=== PATIENT | male | born 1965 | race Caucasian/White ===

== ENCOUNTER 2022-01-24 14:57 | Emergency (ER) | payer MEDICAID, SELFPAY ==
[2022-01-24 15:02] VITALS: BP 114/80; PULSE 96; RESP 18; TEMP 37.2; O2SAT 99; BMI 28.2
--- NOTE | 2022-01-24 15:10 | CRLHL7_ITS ---
For Patients: As a result of the Century Cures Act, medical imaging exams and procedure reports are released immediately into your electronic medical record. You may view this report before your referring provider. If you have questions, please contact your health care provider. INDICATION: Leg pain and swelling. TECHNIQUE: Ultrasound venous duplex lower right extremity. Compression venous exam was performed using negro-scale, color Doppler, and spectral Doppler analysis. COMPARISON: None. FINDINGS: Deep veins: Sonographic imaging demonstrates the right common femoral, deep femoral, superficial femoral, popliteal, and the contralateral left common femoral veins to be fully compressible with normal color Doppler blood flow. Filling defect is identified within a posterior tibial vein on the right. There is also lack of compressibility. Superficial veins: Greater saphenous vein is fully compressible. No popliteal cyst. IMPRESSION: DVT in the right posterior tibial vein. Findings discussed with Dr. Dk Velasquez at 4:45 p.m. on 01/24/2022. Dictated by Gabo Boyd MD @ 01/24/2022 4:46:08 PM (Electronically Signed)
--- NOTE | 2022-01-24 15:11 | ED_ITS ---
HPI - General Adult General Chief complaint: Extremity Pain/Injury, Lower Stated complaint: Blood Clot Time Seen by Provider: 01/24/22 14:58 History of Present Illness HPI narrative: This 56-year-old male comes in with pain in his right calf. He does not report any injury event and does state that he has a history of deep venous thrombosis. He also reports that he has a valve that is regurgitating and needs to schedule a valve repair procedure of some sort. He does not report any chest pain or shortness of breath. He reports pain in his right lower calf in the lower half. Related Data Previous Rx's Medication Instructions Recorded apixaban 5 mg (74 tabs) tablets in See Rx Instructions PO .COMPLEX 01/24/22 a dose pack ([employer] DVT-PE Treat #74 ea 30D Start) Allergies Allergy/AdvReac Type Severity Reaction Status Date / Time No Known Drug Allergies Allergy Verified 01/24/22 15:04 Review of Systems Status of ROS: Reports: 10 or more systems reviewed and unremarkable except as noted in History and below Narrative: Constitutional: No fevers, no weight gain or loss. Eyes: No discharge. No vision changes. HENT: No congestion, no sore throat, no ear pain. Cardiovascular: No chest pain, no palpitations. Respiratory: No shortness of breath, no wheezes, no cough. Gastrointestinal: No abdominal pain, no vomiting, no diarrhea. Genitourinary: No dysuria, no hematuria. Musculoskeletal: Normal range of motion. Pain in the right lower calf. Skin: No rashes, no pruritis. Neurological: No dizziness, weakness, sensory change, speech change. Endo/Heme/Allergies: No bruising or bleeding. No polydipsia. Pysch: no suicidality, no anxiety, no insomnia. All other systems reviewed and are negative. Exam Narrative: Exam Narrative: Constitutional: Well-developed, well-nourished, no acute distress. HEENT: Normocephalic, atraumatic. Neck: Normal range of motion. Nontender. Supple. Heart: Regular. Systolic ejection murmur. Normal rate. Intact distal pulses. Lungs: Clear to auscultation. No chest discomfort. No wheezes, rhonchi, or rales. Abdomen: Normal bowel sounds. Nontender. No rebound tenderness. Genitalia: Deferred. Back: No midline tenderness. Normal range of motion. Extremities: Normal range of motion. No injury. 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 Skin: Intact. No rash. Warm. No erythema or pallor. Neurologic: No altered sensation. No weakness. Alert and oriented. Psychiatric: No suicidality. No anxiety or depression. No insomnia. Nursing notes and vitals signs are reviewed. Const: Vital Signs, click to edit/add: Vital Signs - 24 hr 01/24/22 15:02 Temperature 98.9 F Pulse Rate [Right Pulse Oximeter] 96 Respiratory Rate 18 Blood Pressure [Ri ght Upper Arm] 114/80 Pulse Oximetry 99 Oxygen Delivery Me thod Room Air Course Vital Signs Vital signs: Initial Vital Signs Temperature 98.9 F 01/24/22 15:02 Temperature Source Temporal Artery Scan 01/24/22 15:02 Pulse Rate 96 01/24/22 15:02 Pulse Rhythm 01/24/22 15:02 Respiratory Rate 18 01/24/22 15:02 Blood Pressure 114/80 01/24/22 15:02 Blood Pressure Mean 91 01/24/22 15:02 Blood Pressure Position Sitting 01/24/22 15:02 Pulse Oximetry 99 01/24/22 15:02 Oxygen Delivery Method 01/24/22 15:02 Vital Signs Temperature 98.9 F 01/24/22 15:02 Pulse Rate 96 01/24/22 15:02 Respiratory Rate 18 01/24/22 15:02 Blood Pressure 114/80 01/24/22 15:02 Pulse Oximetry 99 01/24/22 15:02 Oxygen Delivery Method 01/24/22 15:02 Temperature 98.9 F 01/24/22 15:02 Pulse Rate 96 01/24/22 15:02 Respiratory Rate 18 01/24/22 15:02 Blood Pressure 114/80 01/24/22 15:02 Pulse Oximetry 99 01/24/22 15:02 Oxygen Delivery Method 01/24/22 15:02 Medical Decision Making MDM Narrative Medical decision making narrative: This patient comes in reporting pain in his right calf and states that he has a prior history of deep venous thrombosis. He is not on any anticoagulants. Ultrasound imaging of the right lower extremity does show evidence of clot. He does not have any shortness of breath or chest pain. His pulse and respiratory rate and oximetry are all in normal range. I discussed CT imaging of the chest but indicated reassurance with his vital signs. His age is greater than 50 any does have prior history of DVT. Patient agrees to have treatment with Eliquis for anticoagulation. I advised him to follow-up with his primary physician or return if worsening. Discharge Plan Discharge Clinical Impression: DVT (deep venous thrombosis) Patient Disposition: Home, Self-Care Condition: Stable Additional Instructions: Take medication as prescribed. Follow up with primary physician for further evaluation and treatment. Return if worsening. Prescriptions: New Eliquis DVT-PE Treat 30D Start 5 mg (74 tabs) tablets,dose pack See Rx Instructions .ROUTE .COMPLEX Qty: 74 0RF Rx Instructions: orally per package directions Follow Up/Referrals: Provider,Not a Local [Primary Care Provider] - Stand Alone Forms: [facility] Info Instructions
== END 2022-01-24 17:03 | disposition home or self-care (01) ==
PROVIDERS: Emergency Provider Emergency Medicine Emergency Medical Services
DX: I82.461 Acute embolism and thrombosis of right calf muscular vein (principal)
CPT/HCPCS: 93971; 99283; 99285

== ENCOUNTER 2022-06-19 15:14 | Emergency (ER) | payer MEDICAID, SELFPAY ==
[2022-06-19 15:17] VITALS: BP 144/89; PULSE 85; RESP 18; TEMP 37; O2SAT 97; BMI 29.1
[2022-06-19 15:33] LABS: Appearance Urine Clear (Clear); Bilirubin Urine Negative (Negative); Blood Urine Negative (Negative); Color Urine Yellow (Yellow); Glucose Urine Negative (Negative); Ketones Urine Negative (Negative); Leukocyte Esterase Urine Negative (Negative); Nitrite Urine Negative (Negative); Protein Urine Negative (Negative); Specific Gravity Urine >= 1.030 (1.000-1.030); Urobilinogen Urine 0.2 (0.2-1.0); pH Urine 5.5 (5.0-8.5)
[2022-06-19 15:45] LABS: RBC Urine 0-2 (0-2); Squamous Epithelial Cell Urine Few (None-Few); WBC Urine 0-2 (0-5)
--- NOTE | 2022-06-19 16:21 | CRLHL7_ITS ---
For Patients: As a result of the Century Cures Act, medical imaging exams and procedure reports are released immediately into your electronic medical record. You may view this report before your referring provider. If you have questions, please contact your health care provider. INDICATION: Left flank pain TECHNIQUE: Axial images were obtained from the diaphragm to the pubic symphysis. Reformats were obtained in the coronal and sagittal plane. IV Contrast: None Oral Contrast: None COMPARISON: None. FINDINGS: Lower chest: Mild basilar discoid atelectasis. Liver: Unremarkable. Normal in size and attenuation. No masses. Gallbladder and bile ducts: Unremarkable. No stones or inflammation. No biliary dilatation. Spleen: Unremarkable. Normal in size without mass. Pancreas: Unremarkable. No mass or inflammation. Adrenal glands: Unremarkable. No nodules. Kidneys: Kidneys are normal in contour without hydronephrosis or nephrolithiasis. Vasculature: Unremarkable. GI tract: The stomach is unremarkable. Appendix unremarkable. No dilated loops of large or small intestine. Pelvis: Unremarkable. Bones: Ossification of the posterior aspect of the left acetabulum. Other: Left anterior chest wall intramuscular lipoma measuring 3.9 centimeters (series 2, image 15). IMPRESSION: 1. No evidence of nephrolithiasis or hydronephrosis. 2. No dilated bowel or localized inflammation. 3. No clear acute findings to explain the patient`s pain. Please note that all CT scans at this facility use dose modulation, iterative reconstruction, and/or weight-based dosing when appropriate to reduce radiation dose to as low as reasonably achievable. Dictated by Kishor Sims MD @ 06/19/2022 5:37:07 PM (Electronically Signed)
--- NOTE | 2022-06-19 16:22 | ED_ITS ---
HPI - General Adult General Chief complaint: Flank Pain Stated complaint: Back pain in kidney area Time Seen by Provider: 06/19/22 15:52 History of Present Illness HPI narrative: This 57-year-old male comes in reporting pain in his left flank region that began yesterday after waking up. He does not report any injury event or strenuous activity. He states that the pain is minimal when remaining still and distinctly worse when moving or changing position. He does not report any symp toms of dysuria and does not have a history of kidney stone. He does have a recent history of DVT and pulmonary embolism and is currently on Eliquis. He denies having any chest pain or shortness of breath. He arrives with normal vital signs. Related Data Home Medications Medication Instructions Recorded Confirmed simvastatin 20 mg tablet 20 mg PO QPM 06/19/22 06/19/22 Previous Rx's Medication Instructions Recorded apixaban 5 mg (74 tabs) tablets in See Rx Instructions PO .COMPLEX 01/24/22 a dose pack (Eliquis DVT-PE Treat #74 ea 30D Start) Allergies Allergy/AdvReac Type Severity Reaction Status Date / Time No Known Drug Allergies Allergy Verified 06/19/22 15:22 Review of Systems Status of ROS: Reports: 10 or more systems reviewed and unremarkable except as noted in History and below Narrative: Constitutional: No fevers, no weight gain or loss. Eyes: No discharge. No vision changes. HENT: No congestion, no sore throat, no ear pain. Cardiovascular: No chest pain, no palpitations. Respiratory: No shortness of breath, no wheezes, no cough. Gastrointestinal: No abdominal pain, no vomiting, no diarrhea. Genitourinary: No dysuria, no hematuria. Musculoskeletal: Normal range of motion. Pain in the left flank that is worse with movement. Skin: No rashes, no pruritis. Neurological: No dizziness, weakness, sensory change, speech change. Endo/Heme/Allergies: No bruising or bleeding. No polydipsia. Pysch: no suicidality, no anxiety, no insomnia. All other systems reviewed and are negative. PFSH PFS Social History Smoking Status: Heavy tobacco smoker What tobacco products do you use: cigare ttes Second hand tobacco smoke exposure: No How often do you have a drink containing alcohol: never AUDIT-C Alcohol total score: 0 Non-prescribed substance use: declined to answer Exam Narrative: Exam Narrative: Constitutional: Well-developed, well-nourished, no acute distress. HEENT: Normocephalic, atraumatic. Neck: Normal range of motion. Nontender. Supple. Heart: Regular. No murmurs. Normal rate. Intact distal pulses. Lungs: Clear to auscultation. No chest discomfort. No wheezes, rhonchi, or rales. Abdomen: Normal bowel sounds. Nontender. No rebound tenderness. Genitalia: Deferred. Back: No midline tenderness. Normal range of motion. Diffuse tenderness in the left lateral lower and mid back region. No sign of injury. Pain is minimal when remaining still and worse with certain movements. Extremities: Normal range of motion. No injury. Skin: Intact. No rash. Warm. No erythema or pallor. Neurologic: No altered sensation. No weakness. Alert and oriented. Psychiatric: No suicidality. No anxiety or depression. No insomnia. Nursing notes and vitals signs are reviewed. Const: Vital Signs, click to edit/add: Vital Signs - 24 hr 06/19/22 15:17 Temperature 98.6 F Pulse Rate [Right Pulse Oximeter] 85 Respiratory Rate 18 Blood Pressure [Ri ght Upper Arm] 144/89 H Pulse Oximetry 97 Oxygen Delivery Me thod Room Air Course Vital Signs Vital signs: Initial Vital Signs Temperature 98.6 F 06/19/22 15:17 Temperature Source Temporal Artery Scan 06/19/22 15:17 Pulse Rate 85 06/19/22 15:17 Respiratory Rate 18 06/19/22 15:17 Blood Pressure 144/89 H 06/19/22 15:17 Blood Pressure Mean 107 06/19/22 15:17 Blood Pressure Position Sitting 06/19/22 15:17 Pulse Oximetry 97 06/19/22 15:17 Oxygen Delivery Method Room Air 06/19/22 15:17 Vital Signs Temperature 98.6 F 06/19/22 15:17 Pulse Rate 85 06/19/22 15:17 Respiratory Rate 18 06/19/22 15:17 Blood Pressure 144/89 H 06/19/22 15:17 Pulse Oximetry 97 06/19/22 15:17 Oxygen Delivery Method Room Air 06/19/22 15:17 Temperature 98.6 F 06/19/22 15:17 Pulse Rate 85 06/19/22 15:17 Respiratory Rate 18 06/19/22 15:17 Blood Pressure 144/89 H 06/19/22 15:17 Pulse Oximetry 97 06/19/22 15:17 Oxygen Delivery Method Room Air 06/19/22 15:17 Medical Decision Making MDM Narrative Medical decision making narrative: This patient comes in reporting pain in his left flank region that began yesterday upon awakening. He does not report any specific injury event or strenuous activity but does state that if he remains still the pain is minimal. If he moves in certain ways the pain is worsened. This is suggesting a musculoskeletal cause for his pain. His urinalysis is shows normal results. He states that the pain seemed more internal so I did do a CT scan of the abdomen and pelvis. By my review there are no signs of abnormalities. The patient is interested in leaving and did not want a wait for radiology report. He is okay to be discharged home. I indicated that we could contact him if there is any discrepancy or significant finding on the CT imaging. I advised using Tylenol as needed and directed for pain. Lab Data Labs: Lab Results 06/19/22 Range/Units 15:29 Urine Color Yellow (Yellow) Urine Appearance Clear (Clear) Urine pH 5.5 (5.0-8.5) Ur Specific Liberal >= 1.030 (1.000-1.030) Urine Protein Negative (Negative) Urine Glucose (UA) Negative (Negative) Urine Ketones Negative (Negative) Urine Blood Negative (Negative) Urine Nitrite Negative (Negative) Urine Bilirubin Negative (Negative) Urine Urobilinogen 0.2 (0.2-1.0) Ur Leukocyte Esterase Negative (Negative) Urine RBC 0-2 (0-2) Urine WBC 0-2 (0-5) Ur Squamous Epith Cells Few (None-Few) Urine Bacteria None (None) Discharge Plan Discharge Clinical Impression: Acute left flank pain Patient Disposition: Home, Self-Care Condition: Unchanged Additional Instructions: Use Tylenol as needed and directed for pain. Continue current plans otherwise. Follow up with MD or return if worsening. Prescriptions: No Action simvastatin 20 mg tablet 20 mg PO QPM Eliquis DVT-PE Treat 30D Start 5 mg (74 tabs) tablets,dose pack See Rx Instructions .ROUTE .COMPLEX Qty: 74 0RF Rx Instructions: orally per package directions Follow Up/Referrals: Provider,Not a Local [Referring] - Stand Alone Forms: [facility] Info Instructions
--- NOTE | 2022-06-19 17:36 | ED.NURSE ---
pt standing in [place] wants to leave. ct results not back yet. dr. dumont wrote dc instructions.
== END 2022-06-19 17:37 | disposition home or self-care (01) ==
PROVIDERS: Emergency Provider Emergency Medicine Emergency Medical Services; PCP Student in an Organized Health Care Education/Training Program
DX: R10.9 Unspecified abdominal pain (principal)
CPT/HCPCS: 74176; 81001; 99283; 99284

== ENCOUNTER 2022-11-05 15:38 | Emergency (ER) | payer MEDICAID, SELFPAY ==
[2022-11-05 15:57] VITALS: BP 122/79; PULSE 84; RESP 20; TEMP 36.1; O2SAT 97; BMI 28.2
--- NOTE | 2022-11-05 16:00 | CRLHL7_ITS ---
For Patients: As a result of the Century Cures Act, medical imaging exams and procedure reports are released immediately into your electronic medical record. You may view this report before your referring provider. If you have questions, please contact your health care provider. INDICATION: PAIN, SWELLING, HX OF DVT COMPARISON: 01/24/2022 TECHNIQUE: A compression venous ultrasound exam was performed of the right lower extremity using negro-scale imaging, color Doppler and spectral Doppler analysis. FINDINGS: Sonographic imaging of the right lower extremity demonstrates normal compressibility and color Doppler venous blood flow within the common femoral vein, deep femoral vein, and the proximal greater saphenous vein. Within the thigh, the femoral vein is patent and compressible. At a lower level, the popliteal and posterior tibial veins also show normal compressibility and color Doppler venous blood flow. Limited imaging of the contralateral groin demonstrates a normal spectral waveform and color Doppler venous blood flow within the left common femoral vein. IMPRESSION: Normal venous ultrasound exam. No evidence of deep vein thrombosis within the right lower extremity. Dictated by Ruel Estes MD @ 11/05/2022 5:35:05 PM (Electronically Signed)
--- NOTE | 2022-11-05 17:06 | ED_ITS ---
HPI - General Adult General Time Seen by Provider: 17:06 Date Seen: 11/05/22 Chief complaint: Extremity Pain/Injury, Lower Stated complaint: Possible blood clot R leg Time Seen by Provider: 11/05/22 16:43 Source: patient, RN notes reviewed and old records reviewed Mode of arrival: ambulatory Limitations: no limitations History of Present Illness HPI narrative: Luis E is a very pleasant 57-year-old gentleman with a history of DVT and PE who comes to the emergency room with concerns regarding right lower leg pain. Patient states that he had a DVT and PE earlier this year and had to be hospitalized at [facility]. He was on and starter pack of Eliquis and then started on routine dosing of Eliquis. Unfortunately he ran out of that medication approximately 2 weeks ago and was without the medicine for a week and a half. He notes that he has now been back on the Eliquis because he found some doses left over in the starter pack. He only has a few more days left. Last evening he noted increasing discomfort in his right lower extremity. He shows this to be the area of the anterior lateral lower leg. He has not noticed any calf pain. He has not had any fever or chills or drainage from the multiple wounds that her on his lower extremities. He denies a history of diabetes. He works in a [employer] y[employer] and therefore has a lot of injuries to his legs. Denies any recent infection. Patient states that occasionally the pain will radiate into his right knee and into his right hip. He has no lower back pain number numbness or tingling. He is still able to walk and bear weight. He cannot think of any specific trauma. Patient notes that he quit smoking in March. He denies shortness of breath but states he did not have shortness of breath when he had his PE earlier this year. Related Data Home Medications Medication Instructions Recorded Confirmed simvastatin 20 mg tablet 20 mg PO QPM 06/19/22 06/19/22 Previous Rx's Medication Instructions Recorded apixaban 5 mg (74 tabs) tablets in See Rx Instructions PO .COMPLEX 01/24/22 a dose pack (Eliquis DVT-PE Treat #74 ea 30D Start) apixaban 5 mg tablet (Eliquis) 5 mg PO BID #60 tabs 11/05/22 Allergies Allergy/AdvReac Type Severity Reaction Status Date / Time No Known Drug Allergies Allergy Verified 06/19/22 15:22 Review of Systems Status of ROS: Reports: 10 or more systems reviewed and unremarkable except as noted in History and below Const: Denies: fever, chills or fatigue Eyes: Denies: change in vision ENMT: Denies: difficulty swallowing Cardio: Denies: chest pain, palpitations, swelling of feet/ankles, lightheadedness or shortness of breath with exertion Resp: Denies: shortness of breath or cough GI: Denies: abdominal pain, nausea or difficulty swallowing Musculo: Reports: extremity pain (Right lower extremity); Denies: back pain or extremity swelling Integ/Breast: Reports: sores; Denies: redness Neuro: Denies: numbness in extremities or weakness in extremities Endo: Denies: fatigue PFSH PFSH Social History Smoking Status: Heavy tobacco smoker What tobacco products do you use: cigarettes Second hand tobacco smoke exposure: No How often do you have a drink containing alcohol: never AUDIT-C Alcohol total score: 0 Non-prescribed substance use: declined to answer Exam Narrative: Exam Narrative: Patient is noted to be alert and oriented. No acute distress. Neck is supple. Heart with regular rate and rhythm and lungs are clear in all lung mendez. Patient does smell strongly tobacco. No pain in the lower back with palpation. Examination of the lower extremity shows multiple superficial scratches and abrasions. None with any evidence of surrounding erythema drainage were warrants to the touch. Patient is able to move his lower extremities without difficulty. He has no pain with palpation over the Achilles tendon or the gastrocnemius. Const: Vital Signs, click to edit/add: Vital Signs - 24 hr 11/05/22 15:57 Temperature 96.9 F L Pulse Rate [Pulse Oximeter] 84 Respiratory Rate 20 Blood Pressure [Ri ght Upper Arm] 122/79 Pulse Oximetry 97 Oxygen Delivery Me thod Room Air Documenting provider has reviewed patient's vital signs: yes Course Course Hospital Course: At this time patient has already had a ultrasound of the lower extremity. There is residual clot but no new clot noted. Vital Signs Vital signs: Initial Vital Signs Temperature 96.9 F L 11/05/22 15:57 Temperature Source Temporal Artery Scan 11/05/22 15:57 Pulse Rate 84 11/05/22 15:57 Pulse Rhythm Regular 11/05/22 15:57 Respiratory Rate 20 11/05/22 15:57 Blood Pressure 122/79 11/05/22 15:57 Blood Pressure Mean 93 11/05/22 15:57 Blood Pressure Position Sitting 11/05/22 15:57 Pulse Oximetry 97 11/05/22 15:57 Oxygen Delivery Method Room Air 11/05/22 15:57 Vital Signs Temperature 96.9 F L 11/05/22 15:57 Pulse Rate 84 11/05/22 15:57 Respiratory Rate 20 11/05/22 15:57 Blood Pressure 122/79 11/05/22 15:57 Pulse Oximetry 97 11/05/22 15:57 Oxygen Delivery Method Room Air 11/05/22 15:57 Temperature 96.9 F L 11/05/22 15:57 Pulse Rate 84 11/05/22 15:57 Respiratory Rate 20 11/05/22 15:57 Blood Pressure 122/79 11/05/22 15:57 Pulse Oximetry 97 11/05/22 15:57 Oxygen Delivery Method Room Air 11/05/22 15:57 Medical Decision Making MDM Narrative Medical decision making narrative: 1. Right lower leg pain-no evidence of new or occlusive clot. Patient has been back on his Eliquis over the past 3-4 days after having been off of it for a week and a half. I stressed the importance of continuing this medication. I have sent one-month supply of Eliquis 5 mg p.o. b.i.d. to his pharmacy. I do ask however that he follow-up with a primary MD at the [facility] where he usually goes as I would not be able to provide him future refills. I did explain that there is residual clot in his leg (per read tech) but that he is already on what I would order for treatment. Today he has no evidence of tachycardia or hypoxia. I do not think that his leg pain is from residual DVT. Alternatively I do not think this is cellulitis as he does not have a fever or r edness of the leg. Perhaps with some eye discomfort in the knee and hip we could be dealing with a radicular problem but there is no weakness in the lower extremity and sensation is intact. At this time recommend Tylenol as needed for discomfort. 2. Disposition-home at this time. Return for worsening symptoms and as needed. Medical Records Medical records reviewed: Yes I reviewed the patient's medical records Imaging Data Venous US: Attestation: I have reviewed the pertinent imaging results. Radiologist's impression: Sonographic imaging of the right lower extremity demonstrates normal compressibility and color Doppler venous blood flow within the common femoral vein, deep femoral vein, and the proximal greater saphenous vein. Within the thigh, the femoral vein is patent and compressible. At a lower level, the popliteal and posterior tibial veins also show normal compressibility and color Doppler venous blood flow. Limited imaging of the contralateral groin demonstrates a normal spectral waveform and color Doppler venous blood flow within the left common femoral vein. IMPRESSION: Normal venous ultrasound exam. No evidence of deep vein thrombosis within the right lower extremity. Discharge Plan Discharge Clinical Impression: Left leg pain Patient Disposition: Home, Self-Care Condition: Unchanged Additional Instructions: Today you do not have any evidence of a new clot in your leg. Your oxygen levels are good. Please continue your current dosing of Eliquis. One-month supply was sent in to your pharmacy. Please follow-up with the [facility] for a recheck in the next 2-3 weeks. Monitor your leg and if you have worsening symptoms return to the emergency room. Monitor for increasing redness, evidence of infection. Prescriptions: New Eliquis 5 mg tablet 5 mg PO BID Qty: 60 2RF No Action simvastatin 20 mg tablet 20 mg PO QPM Eliquis DVT-PE Treat 30D Start 5 mg (74 tabs) tablets,dose pack See Rx Instructions .ROUTE .COMPLEX Qty: 74 0RF Rx Instructions: orally per package directions Follow Up/Referrals: RHINA WOO DO [Primary Care Provider] - Stand Alone Forms: [employer] Info Instructions
== END 2022-11-05 17:35 | disposition home or self-care (01) ==
LOC: ED 17:26
PROVIDERS: Emergency Provider Family Medicine; PCP Student in an Organized Health Care Education/Training Program
DX: M79.605 Pain in left leg (principal)
CPT/HCPCS: 93971; 99283; 99284

== ENCOUNTER 2022-12-07 01:35 | Emergency (ER) | payer MEDICAID, SELFPAY ==
[2022-12-07 02:04] VITALS: BP 132/74; PULSE 79; RESP 18; TEMP 36.6; O2SAT 99; BMI 24.3
--- NOTE | 2022-12-07 02:38 | CRLHL7_ITS ---
For Patients: As a result of the Cures Act, medical imaging exams and procedure reports are released immediately into your electronic medical record. You may view this report before your referring provider. If you have questions, please contact your health care provider. INDICATION: Cough chest tightness cold, cough, shortness of breath, bilateral wheezing and rales TECHNIQUE: Chest radiograph 2 views COMPARISON: None FINDINGS: Mediastinum: The mediastinum is normal in appearance. Mild cardiomegaly is noted. Lung: There is an 8 mm low-density nodule in the left upper lung zone and a 6 mm nodule in the right upper lung zone. No sign of pleural effusion seen. No pneumothorax is identified. Bone and Soft tissue: Unremarkable for age. IMPRESSIONS: 1. There is an 8 mm low-density nodule in the left upper lung zone and a 6 mm nodule in the right upper lung zone. Comparison with any prior outside imaging is recommended. If these cannot be obtained, follow up chest radiograph in 3 months is warranted to document stability. 2. Mild cardiomegaly is noted. Dictated by Ricky Vincent MD @ 12/07/2022 3:25:38 AM Dictated by: Ricky Vincent MD @ 12/07/2022 03:25:43 (Electronically Signed)
--- NOTE | 2022-12-07 02:39 | ED_ITS ---
HPI - General Adult General Date Seen: 12/07/22 Chief complaint: Cough Stated complaint: difficulty breathing, has cold Time Seen by Provider: 12/07/22 01:43 History of Present Illness HPI narrative: This is a pleasant 57-year-old male who presents to the ER today with his family for evaluation of cough, shortness of breath, chest congestion. He has a fairly complex past history including a history of DVT/PE diagnosed about 8 months ago, currently on Eliquis. 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 He apparently follows with [facility] for that and will be having surgery for it sometime in the not too distant future. It sounds like his surgery has been delayed due to other medical problems. He does not have a formal diagnosis of asthma or COPD but has been given inhalers in the past. He is a former smoker but quit smoking cigarettes last February, 9 months ago. His friends have been ill lately with a cough and chest congestion. He thinks he caught a cold from them. He does not know if they have been diagnosed with any specific illness, such as COVID. He has been sick for 3-5 days with coughing, chest congestion. He has been short of breath. He does have some chronic dyspnea on exertion (that he relates to his heart valve) that is been worse than normal for the past few days while he has been sick. He feels like his chest congestion is starting to get better, but his shortness of breath is not. He is not really worst tonight that he has been for the past few days, but he came to the ER because he is getting better. He is not running a fever. No nasal congestion. No sore throat. No earache. No vomiting or diarrhea. No swelling in his legs. He had a period last month in October where he had been off his Eliquis for a couple of weeks because he ran out. He did get a refill and he has been taking it since then. He says sometimes he forgets to take both doses in a day but he is generally pretty consistent in taking it. Related Data Home Medications Medication Instructions Recorded Confirmed simvastatin 20 mg tablet 20 mg PO QPM 06/19/22 12/07/22 Previous Rx's Medication Instructions Recorded apixaban 5 mg tablet (Eliquis) 5 mg PO BID #60 tabs 11/05/22 doxycycline monohydrate 100 mg 100 mg PO BID 7 days #14 caps 12/07/22 capsule Allergies Allergy/AdvReac Type Severity Reaction Status Date / Time No Known Drug Allergies Allergy Verified 12/07/22 02:05 [facility] Social History Smoking Status: Current every day smoker What tobacco products do you use: cigarettes Do you use any of these nicotine containing products: None Second hand tobacco smoke exposure: Yes How often do you have a drink containing alcohol: never How often do you have six or more drinks on one occasion: Never AUDIT-C Alcohol total score: 0 Non-prescribed substance use: denies use service: No Exam Narrative: Exam Narrative: Constitutional: Appears well-developed and well-nourished. Alert. Conversant. Non toxic. He says he is a nonsmoker but there is an aroma of smoke in the room. Possibly from his sample collector. HENT: Head: Atraumatic. Nose: Nose normal. Mouth/Throat: Oral mucosa is clear and moist. no trismus. Pharynx normal. Tonsils symmetric. No tonsillar enlargement, erythema, or exudate. Eyes: Conjunctivae normal. EOM normal. Pupils equal, round, and reactive to light. No scleral icterus. Neck: Normal range of motion. Neck supple. No tracheal deviation present. Cardiovascular: Normal rate, regular rhythm. No gallop. No friction rub. Systolic murmur heard. Symmetric radial artery pulses . No JVD. Pulmonary/Chest: Effort normal. No stridor. No respiratory distress. Bilateral coarse rales and rhonchi with wheezes. No tenderness. Abdominal: Soft. Bowel sounds normal. No distension. No mass. No tenderness. No rebound. No guarding. Musculoskeletal: RUE: Normal range of motion. No tenderness. No deformity LUE: Normal range of motion. No tenderness. No deformity RLE: Normal range of motion. No edema. No tenderness. No deformity LLE: Normal range of motion. No edema. No tenderness. No deformity Lymph: No cervical adenopathy. Neurological: Alert and oriented to person, place, and time. Normal strength. CN II-VII intact. No sensory deficit. GCS eye subscore is 4. GCS verbal subscore is 5. GCS motor subscore is 6. Normal coordination Skin: Skin is warm and dry. No rash noted. No pallor. Normal capillary refill. Psychiatric: Normal mood. Normal affect. Const: Vital Signs, click to edit/add: Vital Signs - 24 hr 12/07/22 02:04 Temperature 97.8 F Pulse Rate [Right Pulse Oximeter] 79 Respiratory Rate 18 Blood Pressure [Ri ght Upper Arm] 132/74 Pulse Oximetry 99 Oxygen Delivery Me thod Room Air Course Reevaluation(s) Reevaluation #1: Recheck-after DuoNeb patient says he does not feel much better. Repeat lung exam still reveals expiratory rales and wheezes. Perhaps similar to prior, no definite change. Oxygen still 97% room air. Respirations unlabored while resting in bed Reevaluation #2: Recheck-after completing albuterol neb patient feels unchanged. Lung sounds still predominantly reveal expiratory rales and rhonchi. Less wheezing. Work of breathing while at rest is still fine. Oxygen still normal on room air. I ambulated the patient in the ER myself. We were able to walk briskly. We did about 5 laps around the nursing station. He began did develop tachypnea. Weeks went back to his room. Oxygen sat was 95% initially in the came up to 97 within a minute of resting. Work of breathing was fairly rapid. Will obtain further workup to look for cardiac causes of dyspnea or PE since chest x-ray is negative for pneumonia, COVID is negative. Wheezing is resolved after nebs but he still short of breath and has expiratory rales and rhonchi on his lung exam. Vital Signs Vital signs: Initial Vital Signs Respiratory Effort Normal, Spontaneous, Short of Breath 12/07/22 02:00 Respiratory Depth Normal 12/07/22 02:00 Respiratory Pattern Normal 12/07/22 02:00 Vital Signs Temperature 97.8 F 12/07/22 02:04 Pulse Rate 79 12/07/22 02:04 Respiratory Rate 18 12/07/22 02:04 Blood Pressure 132/74 12/07/22 02:04 Pulse Oximetry 99 12/07/22 02:04 Oxygen Delivery Method Room Air 12/07/22 02:04 Temperature 97.8 F 12/07/22 02:04 Pulse Rate 79 12/07/22 02:04 Respiratory Rate 18 12/07/22 02:04 Blood Pressure 132/74 12/07/22 02:04 Pulse Oximetry 99 12/07/22 02:04 Oxygen Delivery Method Room Air 12/07/22 02:04 Medical Decision Making MDM Narrative Medical decision making narrative: 57-year-old male with a history of DVT/PE (currently on Eliquis, with recent break in therapy because he ran out of meds last month). He also has a history of cardiac disease with a heart fell problem. He presents to the ER tonight with chest congestion, cough, shortness of breath. He did catch ?a cold? from his friends and has been symptomatic with that for about 3 or 4 days. COVID/influenza/RSV PCR is negative. Chest x-ray is negative for any obvious focal infiltrate to suggest community-acquired pneumonia. Incidentally chest x-ray does show pulmonary nodules. Discussed with the patient and his family. Follow-up chest x-ray within 1-3 months recommended they verbalized their understanding. He was initially having expiratory wheezes and rales/rhonchi in his lung exam. We administered steroids and 2 bronchodilator nebs. Wheezes did seem to improve but the rales and rhonchi have not changed. Overall he symptomatically does not feel any better after those interventions. He has not been hypoxic here in the ER. With ambulation he became significantly tachypneic but did not develop hypoxia. No altered mental status or signs of hypercarbia. Differential would also include cardiac causes of dyspnea such as CHF, ACS. Since initial diagnostic workup is negative and he is not responding to initial treatments, we will obtain EKG, troponin. Will obtain chest CT to look for recurrent PEs since he has recently been off Eliquis. Fortunately CT scan is negative for PE. CT scan does show infiltrates affecting both lungs but predominantly the left lower lobe which is favored to represent an infection such as pneumonia. Laboratory workup shows normal troponin, normal BNP. He does not have any peripheral edema. At this point CHF seems unlikely. With ground-glass infiltrates consider possible COVID but COVID PCR is negative today. We will treat with doxycycline for possible community-acquired bacterial pneumonia for now. Discussed return precautions. At this point patient is maintaining normal oxygen saturations on room air, has normal mental status (he is playing a game on his smart phone while waiting in the ER) and is safe for outpatient management. Clinical impression 1. Community-acquired pneumonia (left lower lobe> right) 2. Pulmonary nodules Lab Data Labs: Lab Results 12/07/22 12/07/22 Range/Units 02:40 04:15 WBC 10.69 (4.50-11.00) K/uL RBC 5.13 (4.30-5.90) m/uL Hgb 15.6 (13.5-17.5) gm/dL Hct 47.1 (37.0-53.0) % MCV 92 (80-100) fL MCH 30 (26-34) pg MCHC 33 (32-36) gm/dL RDW Coeff of [place] 13.4 (11.5-15.5) % Plt Count 319 (140-440) K/uL Neut % (Auto) 66.4 (42.0-72.0) % Lymph % (Auto) 23.2 (20-44) % [place] % (Auto) 9.5 (0.0-11.0) % Eos % (Auto) 0.6 (0.0-7.0) % Baso % (Auto) 0.2 (0.0-3.0) % Neut # (Auto) 7.10 H (1.7-7.0) K/uL Lymph # (Auto) 2.48 (0.90-2.90) K/uL [place] # (Auto) 1.00 H (0.00-0.90) K/UL Eos # (Auto) 0.06 (0.00-0.50) K/uL Baso # (Auto) 0.02 (0.00-0.30) K/uL Abs Immat Gran (auto) 0.01 (0.00-0.30) K/uL Imm/Tot Granulo (auto) 0.1 % Sodium 139 (135-149) mmol/L Potassium 3.4 L (3.6-5.1) mmol/L Chloride 103 (96-114) mmol/L Carbon Dioxide 27 (20-32) mmol/L Anion Gap 9 (7-15) mEq/L BUN 22 (7-30) mg/dL Creatinine 1.1 (0.5-1.5) mg/dL Estimated Creat Clear 71.68 Estimated GFR 78 ml/min Glucose 120 H (60-115) mg/dL Calcium 9.2 (8.4-10.6) mg/dL Troponin I 0.01 (0.01-0.04) ng/mL NT-Pro-B Natriuret Pep 159 pg/mL SARS-CoV-2 (PCR) Negative SARS-CoV-2 (Negative) Influenza Type A (PCR) Negative PCR FLU A (Negative) Influenza Type B (PCR) Negative PCR FLU B (Negative) RSV (PCR) Negative PCR RSV (Negative) Imaging Data Chest x-ray: My impression: No acute infiltrates or pulmonary edema. Radiologist's impression: IMPRESSIONS: 1. There is an 8 mm low-density nodule in the left upper lung zone and a 6 mm nodule in the right upper lung zone. Comparison with any prior outside imaging is recommended. If these cannot be obtained, follow up chest radiograph in 3 months is warranted to document stability. 2. Mild cardiomegaly is noted. CT scan - chest: Attestation: I have reviewed the pertinent imaging results. Radiologist's impression: IMPRESSION: 1. No pulmonary embolism. 2. Nonspecific pneumonitis or edema in both lungs, predominantly in the left lower lobe. An acute infectious or inflammatory process is suspected. ECG Data Attestation: I personally reviewed and interpreted this ECG as follows: Interpretation: Normal sinus rhythm with premature atrial complexes. Rate 91. IL 130 QRS axis:No pathologic Q-waves. Right bundle branch block. ST segment/T wave: No ST segment elevation or depression. QTc: 492 Discharge Plan Discharge Clinical Impression: Incidental pulmonary nodule, Pneumonia Patient Disposition: Home, Self-Care Condition: Stable Instructions: Pulmonary Nodules (ED) Additional Instructions: Please follow-up with your regular doctor (or your solar thermal technician) to have them get another chest x-ray within 1-3 months to monitor the nodules that the radiologist sees on your chest x-ray tonight. Your CT scan does show that you have pneumonia, primarily affecting your left lower lung. He need to start on the antibiotics to treat your pneumonia. It will probably take 1-2 days before your pneumonia starts to get better. However, if you get worse you should come back to the ER right away-such as if you develop worsening trouble breathing, fever, weakness, chest pain. . Prescriptions: New doxycycline monohydrate 100 mg capsule 100 mg PO BID 7 Days Qty: 14 0RF No Action simvastatin 20 mg tablet 20 mg PO QPM Eliquis 5 mg tablet 5 mg PO BID Qty: 60 2RF Follow Up/Referrals: RHINA WOO DO [Primary Care Provider] - Stand Alone Forms: [employer] Info Instructions
[2022-12-07] MEDS: predniSONE 20 MG TABLET 40 MG PO (02:50)
[2022-12-07] MEDS: IPRAT-ALBUT 0.5-2.5 MG/3 ML NEB 1 NEB IH (02:53)
[2022-12-07 03:23] LABS: PCR FLU A Negative PCR FLU A (Negative); PCR FLU B Negative PCR FLU B (Negative); PCR RSV Negative PCR RSV (Negative)
[2022-12-07 03:24] LABS: SARS PCR* Negative SARS-CoV-2 (Negative)
[2022-12-07 03:30] VITALS: O2SAT 98
[2022-12-07] MEDS: ALBUTEROL SULFATE 2.5 MG/3 ML VIAL.NEB NEB (03:50)
--- NOTE | 2022-12-07 03:53 | CRLHL7_ITS ---
For Patients: As a result of the Century Cures Act, medical imaging exams and procedure reports are released immediately into your electronic medical record. You may view this report before your referring provider. If you have questions, please contact your health care provider. INDICATION: Hypoxia. History of pulmonary embolism. TECHNIQUE: CT chest PE was acquired with 95 cc Isovue 370 IV contrast. COMPARISON: 04/10/2022. FINDINGS: Heart and vasculature: Contrast opacification of the pulmonary arterial tree is adequate. No sign of pulmonary embolism. Heart size is normal. Thoracic aorta and pulmonary artery are normal in caliber. Lungs and pleura: Patchy ground-glass infiltrates present in the left lower lobe and to a lesser extent left upper lobe and right lower lobe. Mild lung hyperinflation and bronchiectasis with scattered areas of scarring. No pleural effusions, pleural thickening, or pneumothorax. Lymph nodes/mediastinum: No mediastinal, hilar, or axillary adenopathy. Chest wall: No masses. Upper abdomen: No acute or significant findings. Bones: Unremarkable for age. IMPRESSION: 1. No pulmonary embolism. 2. Nonspecific pneumonitis or edema in both lungs, predominantly in the left lower lobe. An acute infectious or inflammatory process is suspected. Please note that all CT scans at this facility use dose modulation, iterative reconstruction, and/or weight-based dosing when appropriate to reduce radiation dose to as low as reasonably achievable. Dictated by Tom Trujillo MD @ 12/07/2022 5:10:27 AM (Electronically Signed)
[2022-12-07 04:23] LABS: Basophils Absolute Auto 0.02 K/uL (0.00-0.30); Basophils Percent Auto 0.2 % (0.0-3.0); Eosinophils Absolute Auto 0.06 K/uL (0.00-0.50); Eosinophils Percent Auto 0.6 % (0.0-7.0); Hematocrit 47.1 % (37.0-53.0); Hemoglobin* 15.6 gm/dL (13.5-17.5); Immature Granulocytes Abs Auto 0.01 K/uL (0.00-0.30); Immature Granulocytes Pct Auto 0.1 %; Lymphocytes Absolute Auto 2.48 K/uL (0.90-2.90); Lymphocytes Percent Auto 23.2 % (20-44); Mean Corpuscular HGB Conc 33 gm/dL (32-36); Mean Corpuscular Hemoglobin 30 pg (26-34); Mean Corpuscular Volume 92 fL (80-100); Monocytes Percent Auto 9.5 % (0.0-11.0); Neutrophils Percent Auto 66.4 % (42.0-72.0); Platelet Count* 319 K/uL (140-440); RDW Coefficient of Variation % 13.4 % (11.5-15.5); Red Blood Count 5.13 m/uL (4.30-5.90); White Blood Count* 10.69 K/uL (4.50-11.00)
[2022-12-07 04:25] LABS: Slide Review Reflex No
[2022-12-07 04:36] LABS: Chloride* 103 mmol/L (96-114); Potassium* 3.4 mmol/L (3.6-5.1); Sodium* 139 mmol/L (135-149)
[2022-12-07 04:39] LABS: Anion Gap 9 mEq/L (7-15); Blood Urea Nitrogen* 22 mg/dL (7-30); Carbon Dioxide* 27 mmol/L (20-32); Creatinine* 1.1 mg/dL (0.5-1.5); Est. Creatinine Clearance* 71.68; Estimated Glomerular Filt Rate 78 ml/min
[2022-12-07 04:40] LABS: Calcium* 9.2 mg/dL (8.4-10.6); Glucose* 120 mg/dL (60-115)
[2022-12-07 04:49] LABS: NT Pro B Type NatriureticPept* 159 pg/mL
[2022-12-07 04:52] LABS: Troponin I* 0.01 ng/mL (0.01-0.04)
[2022-12-07 05:45] VITALS: BP 128/81; PULSE 79; RESP 18; TEMP 36.8; O2SAT 98
[2022-12-07 06:08] VITALS: BP 128/81; PULSE 79; RESP 18; TEMP 36.8
== END 2022-12-07 06:09 | disposition home or self-care (01) ==
PROVIDERS: Emergency Provider Emergency Medicine; PCP Student in an Organized Health Care Education/Training Program
DX: J18.9 Pneumonia, unspecified organism (principal); R91.1 Solitary pulmonary nodule
CPT/HCPCS: 36415; 71046; 71275; 80048; 83880; 84484; 85025; 87631; 93005; 94640; 94761; 99284; 99285; J7512; Q9967

== ENCOUNTER 2022-12-22 14:06 | Outpatient (CLI) | payer MEDICAID, SELFPAY | END 2022-12-22 14:07 | disposition home or self-care (01) | LOC: RAD 14:07 | PROVIDERS: PCP Student in an Organized Health Care Education/Training Program; Visit Provider Physician Assistant | DX: I07.9 Rheumatic tricuspid valve disease, unspecified (principal); I07.1 Rheumatic tricuspid insufficiency | CPT/HCPCS: 93306 ==

== ENCOUNTER 2023-05-19 09:43 | Emergency (ER) | payer MEDICAID, SELFPAY ==
[2023-05-19] VITALS (7 sets, daily range): BP systolic 106–152; BP diastolic 69–112; PULSE 75–81; RESP 12–18; TEMP 36.8; O2SAT 90–99; BMI 29.1
--- NOTE | 2023-05-19 10:24 | XR_ITS ---
Final Report Patient: ROLLY STEELE Facility:?[facility] Patient ID:?[id number] Site Patient ID:?[id number]. Site :?[id number] Study:?XRay Chest PCXR-05/19/2023 10:36:50 AM Ordering Physician:SHASHA Final Report: INDICATION: Cough TECHNIQUE: 1 view chest radiograph COMPARISON: 12/07/2022 FINDINGS: Devices: None. Lung volumes are low. No focal or diffuse opacities. No pleural effusion. No pneumothorax. Heart size is borderline enlarged for lung volumes and technique. Median sternotomy wires in place. IMPRESSION: Low lung volumes. No acute findings. Dictated by Anne-Marie Saxena MD @ 05/19/2023 10:44:21 AM (Electronic Signature
--- NOTE | 2023-05-19 10:27 | ED.GENADULT ---
HPI - General Adult General Chief complaint: Chest Pain Stated complaint: chest pain (heart surgery last week) Time Seen by Provider: 05/19/23 10:16 History of Present Illness HPI narrative: 57-year-old male had tricuspid valve replacement last week at [facility]. He was doing quite well, he has oxycodone for occasional incisional pain in his chest. He has had no fever, diaphoresis, shortness of breath. He reported he sneezed very hard last night and had pain in his left parasternal area intermittent burning in that is happened again this morning he took oxycodone it went away. He had no diaphoresis, no nausea no vomiting, he is concerned that something might have been out of place. He has no pain at present he has no leg swelling or edema breathing bleeding or clotting problems. Patient is on Eliquis currently on aspirin, he takes oxycodone as well. He is asymptomatic at present Related Data Home Medications Medication Instructions Recorded Confirmed aspirin 81 mg chewable tablet 1 tab PO DAILY 05/19/23 05/19/23 metoprolol tartrate 25 mg tablet 25 mg PO BID 05/19/23 05/19/23 oxycodone 5 mg tablet mg PO 05/19/23 sennosides 8.6 mg-docusate sodium PO 05/19/23 50 mg tablet (Senexon-S) Previous Rx's Medication Instructions Recorded apixaban 5 mg tablet (Eliquis) 5 mg PO BID #60 tabs 11/05/22 Allergies Allergy/AdvReac Type Severity Reaction Status Date / Time No Known Drug Allergies Allergy Verified 01/23/23 13:00 Review of Systems Status of ROS: Reports: 6 or more systems reviewed and unremarkable except as noted in History and below PFSH PFS Social History Smoking Status: Current every day smoker What tobacco products do you use: cigarettes Do you use any of these nicotine containing products: None Second hand tobacco smoke exposure: Yes How often do you have a drink containing alcohol: never How often do you have six or more drinks on one occasion: Never AUDIT-C Alcohol total score: 0 Non-prescribed substance use: denies use service: No Exam Narrative: Exam Narrative: Objective: Patient's vital signs look within normal limits He is alert orient x3 HEENT is unremarkable facial asymmetry Neck is supple Chest is clear Heart rate and rhythm regular 2/6 systolic murmur Chest wall shows no redness erythema excellent surgical scar without any evidence of infection or cellulitic change, mild parasternal tenderness along the scar. This is somewhat consistent with the discomfort he has felt. Abdomen is benign soft extremities are no edema neurologic nonfocal Good peripheral perfusion noted Const: Vital Signs, click to edit/add: Vital Signs - 24 hr 05/19/23 09:57 05/19/23 10:32 05/19/23 11:03 Temperature 98.3 F Pulse Rate 80 81 Pulse Rate [Right Pulse Oximeter] 78 Respiratory Rate 18 14 12 Blood Pressure 106/69 Blood Pressure [Ri ght Upper Arm] 134/71 Pulse Oximetry 98 98 95 Oxygen Delivery Me thod Room Air 05/19/23 11:32 05/19/23 12:01 05/19/23 12:04 Temperature Pulse Rate 75 79 77 Pulse Rate [Right Pulse Oximeter] Respiratory Rate 14 12 14 Blood Pressure 149/112 H 152/88 H 110/72 Blood Pressure [Ri ght Upper Arm] Pulse Oximetry 97 90 99 Oxygen Delivery Me thod 05/19/23 12:54 Temperature 98.3 F Pulse Rate Pulse Rate [Right Pulse Oximeter] 78 Respiratory Rate 14 Blood Pressure Blood Pressure [Ri ght Upper Arm] 134/71 Pulse Oximetry Oxygen Delivery Me thod Course Vital Signs Vital signs: Initial Vital Signs Temperature 98.3 F 05/19/23 09:57 Temperature Source Temporal Artery Scan 05/19/23 09:57 Pulse Rate 78 05/19/23 09:57 Respiratory Rate 18 05/19/23 09:57 Blood Pressure 134/71 05/19/23 09:57 Blood Pressure Mean 92 05/19/23 09:57 Blood Pressure Position Sitting 05/19/23 09:57 Pulse Oximetry 98 05/19/23 09:57 Oxygen Delivery Method Room Air 05/19/23 09:57 Vital Signs Temperature 98.3 F 05/19/23 09:57 Pulse Rate 78 05/19/23 09:57 Respiratory Rate 18 05/19/23 09:57 Blood Pressure 134/71 05/19/23 09:57 Pulse Oximetry 98 05/19/23 09:57 Oxygen Delivery Method Room Air 05/19/23 09:57 Temperature 98.3 F 05/19/23 12:54 Pulse Rate 78 05/19/23 12:54 Respiratory Rate 14 05/19/23 12:54 Blood Pressure 134/71 05/19/23 12:54 Pulse Oximetry 99 05/19/23 12:04 Oxygen Delivery Method Room Air 05/19/23 09:57 Medical Decision Making MDM Narrative Medical decision making narrative: [age] year white male about 1 week status post tricuspid valve replacement, with a I believe chest wall irritation. The patient's EKG shows sinus rhythm first-degree AV block is got right bundle-branch block he does have some changes EKG but he just had tricuspid surgery as mention he has got what appears to be right bundle-branch block with repolarization change. He has a reassuring physical examination, I think an x-ray of his chest as well as a troponin and lab studies be appropriate. Disposition pending findings. I suspect this is a chest wall pain as mention given that he breathes deeply or turns and he will get a discomfort along the parasternal area. After oxycodone he has had no further symptoms. Addendum 11:06 a.m.: The patient's chest x-ray looks unremarkable I do not see any fluid or infiltrate. The patient's EKG shows her partial right bundle-branch block as mention. Will do a troponin but likely this will be elevated given post cardiac surgery. Really seems like this is more of a cardiac chest wall inflammation issue from his per surgery. Addendum 12:10 p.m. patient's troponin is elevated 2.2 6. I do not know was like when he left for home. I will talk to Cardiology about this. But the patient is quite adamant he does not want any further blood studies done, and he does not want any further EKGs. He was ready to go home at this point and I advised him that I would recommend he get a 2nd troponin to make sure it has not elevated, but again he declines this I think he is competent to understand the risks and benefits involved which should include undiagnosed cardiac injury. I will talk to Cardiology regarding this. He will be discharged home to continue his same medication he has had no symptoms since he has been here. Return if problems or concerns. Addendum 12:17 p.m. patient walked out of the ER after I put a call into Cardiology. I suspect this is chest wall inflammation in his troponins elevated from his surgery. Will discuss this with Cardiology and give the patient a call with some recommendations if they have further ideas. I suspect there is some elevation of the troponin after a week out from the surgery. He should recheck with regular doctor, continue his same medications. As mention the patient did leave before discharge instructions or consult with Cardiology was done. The patient did walk out prior to my consultation with Cardiology. As I recommended a 2nd troponin so did cardiology. But the patient declined this. I think he is cognizant and able to make that decision on his own. He does have elevation is troponin 2 times normal and Cardiology felt that that is likely result of his cardiac surgery as well. He had a normal angiogram within the last year and a half. No recent drug use by his report. And would recommend follow up with regular doctor as planned. I did make very clear to him that I would recommend a 2nd troponin level. Lab Data Labs: Lab Results 05/19/23 Range/Units 11:02 WBC 16.38 H (4.50-11.00) K/uL RBC 4.26 L (4.30-5.90) m/uL Hgb 13.1 L (13.5-17.5) gm/dL Hct 40.1 (37.0-53.0) % MCV 94 (80-100) fL MCH 31 (26-34) pg MCHC 33 (32-36) gm/dL RDW Coeff of [place] 14.6 (11.5-15.5) % Plt Count 587 H (140-440) K/uL Neut % (Auto) 66.5 (42.0-72.0) % Lymph % (Auto) 17.6 L (20-44) % [place] % (Auto) 12.1 H (0.0-11.0) % Eos % (Auto) 1.6 (0.0-7.0) % Baso % (Auto) 0.2 (0.0-3.0) % Neut # (Auto) 10.90 H (1.7-7.0) K/uL Lymph # (Auto) 2.90 (0.90-2.90) K/uL [place] # (Auto) 2.00 H (0.00-0.90) K/UL Eos # (Auto) 0.30 (0.00-0.50) K/uL Baso # (Auto) 0.00 (0.00-0.30) K/uL Abs Immat Gran (auto) 0.30 (0.00-0.30) K/uL Imm/Tot Granulo (auto) 2.0 % Sodium 136 (135-149) mmol/L Potassium 4.6 (3.6-5.1) mmol/L Chloride 102 (96-114) mmol/L Carbon Dioxide 20 (20-32) mmol/L Anion Gap 14 (7-15) mEq/L BUN 28 (7-30) mg/dL Creatinine 0.7 (0.5-1.5) mg/dL Estimated Creat Clear 105.07 Estimated GFR 107 ml/min Glucose 90 (60-115) mg/dL Calcium 10.0 (8.4-10.6) mg/dL Troponin I 0.26 H* (0.01-0.04) ng/mL Discharge Plan Discharge Clinical Impression: Acute chest wall pain, H/O tricuspid valve replacement Patient Disposition: Home w/ Parent or Adult Condition: Stable Additional Instructions: Light activity, ice to the chest wall, pain medicine as needed, follow-up with your regular doctor as scheduled, update the dog day care attendant the next couple of days, return to ED if worsening change concerns or recurrence. Activity Level: Light activity Discharge Diet: Regular Prescriptions: No Action Eliquis 5 mg tablet 5 mg PO BID Qty: 60 2RF sennosides-docusate sodium [Senexon-S] 8.6-50 mg tablet PO aspirin 81 mg tablet,chewable 1 tab PO DAILY oxycodone 5 mg tablet PO metoprolol tartrate 25 mg tablet 25 mg PO BID Follow Up/Referrals: RHINA WOO DO [Primary Care Provider] - Stand Alone Forms: MyHealth Info Instructions
[2023-05-19 11:08] LABS: Basophils Percent Auto 0.2 % (0.0-3.0); Eosinophils Percent Auto 1.6 % (0.0-7.0); Hematocrit 40.1 % (37.0-53.0); Hemoglobin* 13.1 gm/dL (13.5-17.5); Lymphocytes Percent Auto 17.6 % (20-44); Mean Corpuscular HGB Conc 33 gm/dL (32-36); Mean Corpuscular Hemoglobin 31 pg (26-34); Mean Corpuscular Volume 94 fL (80-100); Monocytes Percent Auto 12.1 % (0.0-11.0); Neutrophils Percent Auto 66.5 % (42.0-72.0); Platelet Count* 587 K/uL (140-440); RDW Coefficient of Variation % 14.6 % (11.5-15.5); Red Blood Count 4.26 m/uL (4.30-5.90); White Blood Count* 16.38 K/uL (4.50-11.00)
[2023-05-19 11:18] LABS: Slide Review Reflex No
[2023-05-19 11:21] LABS: Chloride* 102 mmol/L (96-114)
[2023-05-19 11:22] LABS: Potassium* 4.6 mmol/L (3.6-5.1); Sodium* 136 mmol/L (135-149)
[2023-05-19 11:24] LABS: Anion Gap 14 mEq/L (7-15); Carbon Dioxide* 20 mmol/L (20-32); Creatinine* 0.7 mg/dL (0.5-1.5); Est. Creatinine Clearance* 105.07; Estimated Glomerular Filt Rate 107 ml/min
[2023-05-19 11:25] LABS: Blood Urea Nitrogen* 28 mg/dL (7-30); Glucose* 90 mg/dL (60-115)
[2023-05-19 11:40] LABS: Troponin I* 0.26 ng/mL (0.01-0.04)
== END 2023-05-19 12:40 | disposition home or self-care (01) ==
LOC: ED 10:42
PROVIDERS: Emergency Provider Family Medicine; PCP Student in an Organized Health Care Education/Training Program
DX: R07.89 Other chest pain (principal); Z95.2 Presence of prosthetic heart valve
CPT/HCPCS: 36415; 71045; 80048; 84484; 85025; 93005; 99284; 99285